=== PATIENT | female | born 1965 | race Caucasian/White ===

== ENCOUNTER 2016-08-14 13:12 | Emergency (ER) | payer BC ==
[~2016-08-14] VITALS: Ht 167.6 cm; Wt 140.9 kg
[2016-08-14 13:19] VITALS: TEMP 37.2; Ht 167.6 cm; Wt 140.9 kg
[2016-08-14] MEDS ORDERED: SODIUM CHLORIDE 0.9% 1000ML 1,000 ML IV STA (14:45)
[2016-08-14 15:02] LABS: BASO % 0.2 %; BASO ABS # 0.02 K/uL (0-0.2); COMPLETE YES; EOS % 1.9 %; IG% 0.1 %; LYMPH % 20.9 %; LYMPH ABS # 1.86 K/uL (1.2-3.4); MEAN CELL VOLUME 80.9 fL (80-100); MEAN CORPUSCULAR HGB CONC 33.4 g/dl (32-36); MEAN PLATELET VOLUME 9.6 fL (7.4-10.4); MONO % 5.1 %; NEUT % 71.8 %; PLATELET COUNT 263 K/uL (130-400); RED BLOOD COUNT 5.07 M/uL (4.2-5.4); WHITE BLOOD COUNT 8.88 K/uL (4.8-10.8)
[2016-08-14 15:12] LABS: PARTIAL THROMBOPLASTIN RATIO 1.2; PROTHROMBIN TIME (PATIENT) 11.1 SECONDS (9.0-12.0)
[2016-08-14 15:13] VITALS: O2SAT 94
--- NOTE | 2016-08-14 15:19 | DIAGNOSTIC IMAGING REPORT ---
CHEST ONE VIEW PORTABLE CLINICAL HISTORY: stroke like symptoms dyspnea COMPARISON STUDY: No previous studies for comparison. FINDINGS: Mild cardia megaly. Diaphragms are smooth. Lungs are clear. IMPRESSION: Mild cardiomegaly. Otherwise negative study Electronically signed by: Josué Lind M.D. 08/14/2016 3:18 PM Dictated Date/Time: 08/14/2016 3:17 PM
[2016-08-14 15:22] LABS: BUN/CREATININE RATIO 19.7 (10-20); CALCIUM 8.9 mg/dl (8.5-10.1); CREATININE 0.8 mg/dl (0.60-1.20); MAGNESIUM 2.3 mg/dl (1.8-2.4); POTASSIUM 3.9 mmol/L (3.5-5.1)
[2016-08-14 15:31] LABS: C-REACTIVE PROTEIN 2.31 mg/dl (0-0.29); CKMB/CK RATIO 0.6 (0-3.0); THYROID STIMULATING HORMONE 1.45 uIu/ml (0.300-4.500)
[2016-08-14 15:35] LABS: URINE APPEARANCE CLEAR (CLEAR); URINE BILIRUBIN NEG (NEG); URINE COLOR YELLOW; URINE EPITHELIAL CELL AUTO >30 /lpf (0-5); URINE NITRITE NEG (NEG); URINE SPECIFIC GRAVITY 1.021 (1.000-1.030); UROBILINOGEN NEG (NEG); ZZUR CULT IF INDIC CLEAN CATCH NO
[2016-08-14 15:40] LABS: MANUAL MICROSCOPIC REQUIRED? NO; REVIEW REQ? YES
--- NOTE | 2016-08-14 15:52 | DIAGNOSTIC IMAGING REPORT ---
CT SCAN OF THE BRAIN WITHOUT IV CONTRAST CLINICAL HISTORY: Frontal headache. COMPARISON STUDY: No priors. TECHNIQUE: Unenhanced axial CT scan of the brain is performed from the vertex to the skull base. Automated dose control exposure was utilized. CT DOSE: 720.95 mGycm FINDINGS: Brain parenchyma: The brain parenchyma is normal in appearance. There is no hemorrhage, mass effect, or evidence of acute territorial ischemia by CT criteria. Quintana-white matter is preserved. No extra-axial fluid collection is seen. Ventricles, sulci, cisterns: Normal in configuration. Intracranial vasculature: There is mild atherosclerotic calcification of the cavernous carotid arteries. Calvarium: Unremarkable. Sinuses and mastoids: The visualized paranasal sinuses are clear. The mastoid air cells are well pneumatized. Orbits: The bony orbits are grossly intact. IMPRESSION: No acute intracranial abnormality. Electronically signed by: Gigi Vang M.D. 08/14/2016 3:51 PM Dictated Date/Time: 08/14/2016 3:49 PM
[2016-08-14 16:01] LABS: BENZODIAZEPINE, URINE NEG (NEG); COCAINE,URINE NEG (NEG); PHENCYCLIDINE, URINE NEG (NEG)
[2016-08-14 16:08] LABS: LYME DISEASE AB IGG NEG (NEG); LYME DISEASE AB IGM NEG (NEG)
[2016-08-14] MEDS ORDERED: MoRPHine SULFATE 2 MG/ML CARP IV STA (16:11)
[2016-08-14] MEDS ORDERED: ONDANSETRON INJ 2 MG/ML 2 ML VIAL IV STA (16:11)
[2016-08-14] MEDS ORDERED: GADAVIST IV PRN (19:15)
--- NOTE | 2016-08-14 19:16 | DIAGNOSTIC IMAGING REPORT ---
MRI OF THE BRAIN WITHOUT AND WITH IV CONTRAST CLINICAL HISTORY: Headaches, visual and speech difficulty. Possible stroke. COMPARISON STUDY: Head CT dated 08/14/2016 TECHNIQUE: MRI of the brain was performed from the vertex to the skull base utilizing various T1 and T2 weighted sequences. Following the IV administration of 14 mL of Gadavist contrast, additional enhanced images were obtained. FINDINGS: Sagittal T1, axial diffusion, proton density and T2 weighted axial, coronal FLAIR, and pre and post axial T1-weighted images were acquired. These were supplemented with post gadolinium coronal T1 weighted images. No intra or extra-axial mass lesions are visualized. Axial diffusion-weighted images reveal no evidence of acute or subacute infarction. There is no evidence of ventricular dilatation. Proton density T2-weighted and FLAIR images reveal no significant parenchymal signal abnormalities. There are no abnormal flow voids. There is no evidence of pathologic enhancement. IMPRESSION: Normal MRI of the brain for age Electronically signed by: Gurvinder Ferraro M.D. 08/14/2016 7:15 PM Dictated Date/Time: 08/14/2016 7:13 PM
[2016-08-14] MEDS ORDERED: SODIUM CHLORIDE 0.9% 500ML 500 ML IV STA (19:59)
[2016-08-14] MEDS ORDERED: PROCHLORPERAZINE 5 MG/ML 2 ML VIAL IV STA (19:59)
[2016-08-14] MEDS ORDERED: KETOROLAC TROMETHAMINE 30 MG/ML VIAL IV STA (19:59)
[2016-08-14] MEDS ORDERED: DiphenhydrAMINE HCL 50 MG/ML VIAL IV STA (19:59)
[2016-08-14] MEDS ORDERED: DEXAMETHASONE SOD INJ 10 MG/ML VIAL IV ONE (20:00)
[2016-08-14] MEDS ORDERED: SUMA50TA15 PO (21:28)
--- NOTE | 2016-08-14 21:28 | EMERGENCY ROOM VISIT NOTE ---
History First contact with patient: 14:19 Chief Complaint: STROKE SYMPTOMS Stated Complaint: HEADACHE SLURRED SPEECH Nursing Triage Summary: pt report periodic headaches for approx 1 month has been seeing pcp for this. last night started with headache. currently being worked up for sleep apnea. today started having slurred speech. pcp sent pt here for eval. denies any n/v.last night had metallic taste in mouth with pain up back of neck into head. usually takes tylenol and it helps. has not taken anything today History of Present Illness The patient is a 50 year old female who presents to the Emergency Department by private vehicle for evaluation of her headache with associated slurred speech. The patient reports that she has had waxing and waning headaches over the past year. Most recently, she was admitted by her primary care provider's office and had a sleep study performed an evaluation of her headaches as they were concerned that sleep apnea was contributing. She is not had any imaging studies performed of her head to this point. Over the last 3 weeks she is been having worsening headaches which have increased in frequency. In addition, she experienced some confusion as well as what she feels like slurring of her speech. Another episode occurred this morning which proctored her to see her primary care provider in walk-in setting. She was directed immediately to the emergency department for further evaluation and management. She describes the headache as a frontal headache with associated pain in the back of her head. She reports that her headache persists at this time, however the slurred speech has completely resolved. She equates this only to when she experiences headaches. The patient rates her current discomfort as a 4/10. She is tried nothing [id number] for her symptoms. She is not been placed on any medications to this point. The patient also complains of photosensitivity as well as an occasional metallic taste in her mouth. She denies any fevers, chills, recent head injuries, nausea, vomiting, abdominal pain, hematochezia, melena, hematuria, or dysuria. She reports a history of headaches. She reports no history of neurological disease otherwise. The patient takes no daily medications. She denies any history of CVA, TIA, ACS, SC, amongst others. Review of Systems A complete 10-point Review of Systems was discussed with the patient, with pertinent positives and negatives listed in the History of Present Illness. All remaining Review of Systems questions can be considered negative unless otherwise specified. Social History Smoking Status: Never Smoker Smokeless Tobacco Use: No Drug Use: none Marital Status: Housing Status: lives with family Occupation Status: employed Current/Historical Medications Scheduled Prednisone (Prednisone), 50 MG PO DAILY Sumatriptan Succinate (Imitrex), 50 MG PO PRN Allergies Coded Allergies: Aspirin (Unverified Allergy, Unknown, unknown , 08/14/16) had a blood disorder as a child, this was put in as a allergy, Physical Exam Vital Signs Date Time Temp Pulse Resp B/P Pulse Ox O2 Delivery O2 Flow Rate FiO2 08/14/16 21:49 84 16 97/74 99 08/14/16 20:52 84 20 118/77 94 08/14/16 19:22 107/73 08/14/16 17:12 76 15 100 08/14/16 17:01 143/82 08/14/16 16:42 71 16 99 08/14/16 16:12 75 16 97 08/14/16 16:01 132/78 08/14/16 15:37 76 08/14/16 15:31 131/79 08/14/16 15:15 74 17 127/89 95 Room Air 08/14/16 15:14 127/89 08/14/16 15:13 94 Room Air 08/14/16 13:19 37.2 89 20 150/91 96 Room Air Pain Rating (0-10): 4 Physical Exam VITAL SIGNS - Vital signs and nursing notes were reviewed. GENERAL - 50-year-old female appearing her stated age who is in no acute distress. Communicates well with provider and answers questions appropriately. HEAD - Normocephalic, Atraumatic. No Ritter's Sign or Raccoon's Eyes. No depressed skull fractures palpable. EYES - PERRL with EOMI bilaterally. Sclera anicteric. Palpebral conjunctiva pink and moist with no injection noted. EARS - No deformities of external structures noted on gross examination bilaterally. No pain elicited with palpation of the tragus bilaterally. External auditory canals without discharge or otorrhea. Tympanic membranes pearly quintana without retraction or bulging. NOSE - Midline and without cyanosis. No epistaxis or purulent drainage noted. Septum midline without deviation or septal hematoma noted. MOUTH/OROPHARYNX - Without perioral cyanosis. Buccal mucosa pink and moist and without leukoplakia. Tongue midline with equal elevation of palate bilaterally. No tonsillar hypertrophy, erythema, or exudates noted. Good dentition noted. NECK - Neck with FROM. Supple to palpation. No lymphadenopathy noted. No nuchal rigidity. LUNGS - Chest wall symmetric without accessory muscle use, intercostals retractions, or central cyanosis. Normal vesicular breath sounds CTA B/L. No wheezes, rales, or rhonchi appreciated. CARDIAC - RRR with S1/S2. No murmur, rubs, or gallops appreciated. ABDOMEN - Abdominal contour obese and without pulsations or visible masses. BS normoactive all four quadrants. No tenderness, palpable masses, hepatosplenomegaly, or ascites noted. EXTREMITIES - No pretibial edema present. +3/5 radial and dorsalis pedis pulses palpated throughout. FROM with no tremors, fasciculations, or clonus noted on PROM throughout. +5/5 strength noted in UE/LE bilaterally. NEUROLOGIC - Cranial nerves II through XII grossly intact. Sensory intact to light touch throughout. Patellar reflexes +2/4. Patient able to perform rapid alternating movements appropriately. Negative Romberg and Pronator Drift. Negative [id number]. PSYCH - A&Ox3 and cooperates fully with examiner. Pt is very pleasant and interacts well with examiner. Medical Decision & Procedures ER Provider Diagnostic Interpretation: Radiological imaging and reports were reviewed by myself. Radiologist's Interpretation as follows: CHEST ONE VIEW PORTABLE CLINICAL HISTORY: stroke like symptoms dyspnea COMPARISON STUDY: No previous studies for comparison. FINDINGS: Mild cardia megaly. Diaphragms are smooth. Lungs are clear. IMPRESSION: Mild cardiomegaly. Otherwise negative study CT SCAN OF THE BRAIN WITHOUT IV CONTRAST CLINICAL HISTORY: Frontal headache. COMPARISON STUDY: No priors. TECHNIQUE: Unenhanced axial CT scan of the brain is performed from the vertex to the skull base. Automated dose control exposure was utilized. CT DOSE: 720.95 mGycm FINDINGS: Brain parenchyma: The brain parenchyma is normal in appearance. There is no hemorrhage, mass effect, or evidence of acute territorial ischemia by CT criteria. Quintana-white matter is preserved. No extra-axial fluid collection is seen. Ventricles, sulci, cisterns: Normal in configuration. Intracranial vasculature: There is mild atherosclerotic calcification of the cavernous carotid arteries. Calvarium: Unremarkable. Sinuses and mastoids: The visualized paranasal sinuses are clear. The mastoid air cells are well pneumatized. Orbits: The bony orbits are grossly intact. IMPRESSION: No acute intracranial abnormality. MRI OF THE BRAIN WITHOUT AND WITH IV CONTRAST CLINICAL HISTORY: Headaches, visual and speech difficulty. Possible stroke. COMPARISON STUDY: Head CT dated 08/14/2016 TECHNIQUE: MRI of the brain was performed from the vertex to the skull base utilizing various T1 and T2 weighted sequences. Following the IV administration of 14 mL of Gadavist contrast, additional enhanced images were obtained. FINDINGS: Sagittal T1, axial diffusion, proton density and T2 weighted axial, coronal FLAIR, and pre and post axial T1-weighted images were acquired. These were supplemented with post gadolinium coronal T1 weighted images. No intra or extra-axial mass lesions are visualized. Axial diffusion-weighted images reveal no evidence of acute or subacute infarction. There is no evidence of ventricular dilatation. Proton density T2-weighted and FLAIR images reveal no significant parenchymal signal abnormalities. There are no abnormal flow voids. There is no evidence of pathologic enhancement. IMPRESSION: Normal MRI of the brain for age Laboratory Results 08/14/16 14:50 Red Blood Count 5.07, Mean Corpuscular Volume 80.9, Mean Corpuscular Hemoglobin 27.0, Mean Corpuscular Hemoglobin Concent 33.4, Mean Platelet Volume 9.6, Neutrophils (%) (Auto) 71.8, Lymphocytes (%) (Auto) 20.9, Monocytes (%) (Auto) 5.1, Eosinophils (%) (Auto) 1.9, Basophils (%) (Auto) 0.2, Neutrophils # (Auto) 6.37, Lymphocytes # (Auto) 1.86, Monocytes # (Auto) 0.45, Eosinophils # (Auto) 0.17, Basophils # (Auto) 0.02 08/14/16 14:50 Test 08/14/16 14:50 08/14/16 14:55 08/14/16 15:15 White Blood Count 8.88 K/uL (4.8-10.8) Red Blood Count 5.07 M/uL (4.2-5.4) Hemoglobin 13.7 g/dL (12.0-16.0) Hematocrit 41.0 % (37-47) Mean Corpuscular Volume 80.9 fL (80-100) Mean Corpuscular Hemoglobin 27.0 pg (25-34) Mean Corpuscular Hemoglobin Concent 33.4 g/dl (32-36) Platelet Count 263 K/uL (130-400) Mean Platelet Volume 9.6 fL (7.4-10.4) Neutrophils (%) (Auto) 71.8 % Lymphocytes (%) (Auto) 20.9 % Monocytes (%) (Auto) 5.1 % Eosinophils (%) (Auto) 1.9 % Basophils (%) (Auto) 0.2 % Neutrophils # (Auto) 6.37 K/uL (1.4-6.5) Lymphocytes # (Auto) 1.86 K/uL (1.2-3.4) Monocytes # (Auto) 0.45 K/uL (0.11-0.59) Eosinophils # (Auto) 0.17 K/uL (0-0.5) Basophils # (Auto) 0.02 K/uL (0-0.2) RDW Standard Deviation 42.2 fL (36.4-46.3) RDW Coefficient of Variation 14.2 % (11.5-14.5) Immature Granulocyte % (Auto) 0.1 % Immature Granulocyte # (Auto) 0.01 K/uL (0.00-0.02) Erythrocyte Sedimentation Rate 42 mm/hr (0-21) Prothrombin Time 11.1 SECONDS (9.0-12.0) Prothromb Time International Ratio 1.0 (0.9-1.1) Activated Partial Thromboplast Time 30.1 SECONDS (21.0-31.0) Partial Thromboplastin Ratio 1.2 Anion Gap 7.0 mmol/L (3-11) Est Creatinine Clear Calc Drug Dose 122.1 ml/min Estimated GFR () 99.6 Estimated GFR (Non- 86.0 BUN/Creatinine Ratio 19.7 (10-20) Calcium Level 8.9 mg/dl (8.5-10.1) Magnesium Level 2.3 mg/dl (1.8-2.4) Total Bilirubin 0.3 mg/dl (0.2-1) Aspartate Amino Transf (AST/SGOT) 18 U/L (15-37) Alanine Aminotransferase (ALT/SGPT) 37 U/L (12-78) Alkaline Phosphatase 78 U/L (45-117) Total Creatine Kinase 146 U/L (26-192) Creatine Kinase MB 0.9 ng/ml (0.5-3.6) Creatine Kinase MB Ratio 0.6 (0-3.0) C-Reactive Protein 2.31 mg/dl (0-0.29) Total Protein 7.8 gm/dl (6.4-8.2) Albumin 3.8 gm/dl (3.4-5.0) Globulin 4.0 gm/dl (2.5-4.0) Albumin/Globulin Ratio 1.0 (0.9-2) Lipase 121 U/L (73-393) Thyroid Stimulating Hormone (TSH) 1.450 uIu/ml (0.300-4.500) Lyme Disease IgG Antibody NEG (NEG) Lyme Disease IgM Antibody NEG (NEG) Bedside Troponin I 0.000 ng/ml (0-0.045) Urine Color YELLOW Urine Appearance CLEAR (CLEAR) Urine pH 5.0 (4.5-7.5) Urine Specific [place] 1.021 (1.000-1.030) Urine Protein NEG (NEG) Urine Glucose (UA) NEG (NEG) Urine Ketones NEG (NEG) Urine Occult Blood NEG (NEG) Urine Nitrite NEG (NEG) Urine Bilirubin NEG (NEG) Urine Urobilinogen NEG (NEG) Urine Leukocyte Esterase SMALL (NEG) Urine WBC (Auto) 1-5 /hpf (0-5) Urine RBC (Auto) 0-4 /hpf (0-4) Urine Hyaline Casts (Auto) 1-5 /lpf (0-5) Urine Epithelial Cells (Auto) >30 /lpf (0-5) Urine Bacteria (Auto) NEG (NEG) Urine Opiates Screen NEG (NEG) Urine Methadone, Qualitative NEG (NEG) Urine Barbiturates NEG (NEG) Urine Phencyclidine (PCP) Level NEG (NEG) Ur Amphetamine/Methamphetamine NEG (NEG) MDMA (Ecstasy) Screen NEG (NEG) Urine Benzodiazepines Screen NEG (NEG) Urine Cocaine Metabolite NEG (NEG) Urine Marijuana (THC) NEG (NEG) Medications Administered Medications (Trade) Dose Ordered Sig/Juan Luis Route Start Time Stop Time Status Last Admin Dose Admin Sodium Chloride (Nss 1000ml) 1,000 ml @ 250 mls/hr Q4H STAT IV 08/14/16 14:45 08/14/16 18:44 DC 08/14/16 15:20 250 MLS/HR Morphine Sulfate (MoRPHine SULFATE INJ) 2 mg NOW STAT IV 08/14/16 16:11 08/14/16 16:12 DC 08/14/16 16:22 2 MG Ondansetron HCl (Zofran Inj) 4 mg NOW STAT IV 08/14/16 16:11 08/14/16 16:12 DC 08/14/16 16:22 4 MG Prochlorperazine Edisylate (Compazine Inj) 10 mg NOW STAT IV 08/14/16 19:59 08/14/16 20:00 DC 08/14/16 20:20 10 MG Diphenhydramine HCl (Benadryl Inj) 25 mg NOW STAT IV 08/14/16 19:59 08/14/16 20:00 DC 08/14/16 20:20 25 MG Ketorolac Tromethamine (Toradol Inj) 30 mg NOW STAT IV 08/14/16 19:59 08/14/16 20:00 DC 08/14/16 20:21 30 MG Dexamethasone Sodium Phosphate 10 mg 10 mg NOW ONCE IV 08/14/16 20:00 08/14/16 20:01 DC 08/14/16 20:20 10 MG Sodium Chloride (Nss 500ml) 500 ml @ 999 mls/hr Q31M STAT IV 08/14/16 19:59 08/14/16 20:29 DC 08/14/16 20:21 999 MLS/HR Procedure Patient was placed on the building service worker and monitored throughout the entire extent of their stay. In addition, the patient's pulse oximetry was monitored throughout the entire stay. Any abnormalities or aberrancies were addressed appropriately. ECG Indication: other Rate (beats per minute): 72 Rhythm: normal sinus Findings: RBBB, no acute ischemic change, no ectopy Comparison ECG Date: no prior available ED Course Patient was seen and evaluated by myself. Labs were drawn, saline lock in place. The patient was hydrated with 1000 mL normal saline bolus. The patient received 2 mg morphine and 4 mg Zofran intravenously. Chest x-ray and head CT were obtained. Laboratory results demonstrate no acute leukocytosis, worrisome anemia, or bandemia. The patient has no significant electrolyte abnormalities. Cardiac enzymes, EKG, and troponin are negative. Urinalysis is unremarkable. ESR and CRP are negative. Lyme titer was negative. Patient was reevaluated and feels somewhat better at this time. MRI was ordered. After return from MRI , the patient was treated with 10 mg Compazine, 25 mL Benadryl, 30 g Toradol, 10 mg Decadron, and a 500 mL normal saline bolus. MRI results as above. I did discuss the case with Dr. Lowe of neurology. He felt it best the patient be provided a triptan for breakthrough symptoms. Patient was reevaluated and feels "the best I've felt in several days". The patient was encouraged to follow-up with her primary care provider from today's visit. She was educated on worrisome symptoms for return visit to the emergency department. Patient discharged home afebrile and in good condition with her significant other driving. Medical Decision Given the patient's presentation and stated complaints, I did elect to perform the above-mentioned workup. The patient presents today with headaches and subjective slurred speech. Her neurological exam is completely unremarkable. She has no focal neurological deficits[facility] Eventually, migraine cocktail did resolve the patient's symptoms completely. An MRI demonstrates no acute findings. The patient is likely experiencing a complex migraine headache. In consultation with neurology. They feel it best to place the patient on a short course of triptan medications to help with breakthrough symptoms. The patient and significant other were educated on these findings today. They feel comfortable with disposition and plan. Patient was educated on worrisome symptoms for return visit to the emergency department. Patient discharged home afebrile and in good condition. In the evaluation and treatment of this patient, the following differential diagnoses were considered: Migraine Headache, Intracranial Hemorrhage, Subdural Hematoma, Subarachnoid Hemorrhage, Cerebral Aneurysm, Temporal/Giant Cell Arteritis, Tension Headache, Meningitis, Encephalitis, or Hydrocephalus. Impression Primary Impression: Headache Additional Impression: Migrainous headache without aura Departure Information Dispostion Home / Self-Care Condition GOOD Prescriptions Prednisone (Prednisone) 50 Mg Tab 50 MG PO DAILY for 4 Days, #4 TAB Prov: Jonny Sim PA-C 08/15/16 Sumatriptan Succinate (IMITREX) 50 Mg Tab 50 MG PO PRN for 14 Days, #28 TAB Prov: Jonny Sim PA-C 08/14/16 Referrals Marylin Chen (PCP) Margot Lowe M.D. Patient Instructions ED Headache Migraine, [facility] Additional Instructions You have been treated in the Emergency Department for a Headache. Use the Imitrex as needed for return of headaches. For pain control, you can use the following [id number] medicines (if >12 yo): - Regular strength (325mg/tab) Tylenol (acetaminophen) 2 tabs every 4-6 hours as needed. Do not exceed 12 tablets in a 24 hour period. Avoid taking more than 4 grams (4000 mg) of Tylenol per day. This includes any other sources of acetaminophen you may take on a regular basis. - Regular strength (200 mg/tab) Advil (ibuprofen) 1-2 tabs every 4-6 hours as needed. Do not exceed a dose of 3200 mg per day. You should relax in a quiet, dark place for the rest of the day. Avoid any possible triggers including: cigarette smoke, caffeine, nicotine, chocolate, wine, beer, loud noises or music, or bright lights. You should schedule a follow-up appointment in 2-3 days with your Primary Care Provider or established Neurologist for further evaluation and treatment of your Headache. Return to the Emergency Department if your current symptoms worsen despite treatment course outlined above, or if you develop any of the following symptoms : intractable pain despite aforementioned treatment course, visual disturbances , loss of vision, unilateral weakness or facial drooping, slurring of speech, loss of coordination, or loss of consciousness. Problem Qualifiers Primary Impression: Headache Headache type: unspecified Headache chronicity pattern: acute headache Intractability: not intractable Qualified Codes: R51 - Headache Additional Impression: Migrainous headache without aura Status migrainosus presence: with status migrainosus Intractability: not intractable Qualified Codes: G43.001 - Migraine without aura, not intractable , with status migrainosus
[2016-08-14 21:49] VITALS: BP 97/74; PULSE 84; O2SAT 99
[2016-08-15] MEDS ORDERED: PRED50TA PO (11:30)
== END 2016-08-14 21:50 | disposition home or self-care (01) ==
LOC: C.EDB 13:14 → C.EDA 21:50
DX: G43.909 Migraine, unspecified, not intractable, without status migrainosus (principal); R47.81 Slurred speech; G47.30 Sleep apnea, unspecified